=== PATIENT | male | born 1950 | race Two or more races ===

== ENCOUNTER 2025-08-01 10:00 | Inpatient (IN) | payer OTHER ==
[~2025-08-01] VITALS: Ht 182.9 cm; Wt 102.1 kg
[2025-08-01 11:49] LABS: URINE APPEARANCE Clear; URINE BILIRRUBIN Negative (NEGATIVE); URINE BLOOD Negative; URINE COLOR Yellow; URINE GLUCOSE Negative (NEGATIVE); URINE KETONE Negative (NEGATIVE); URINE LEUKOCYTE Negative; URINE NITRATE Negative; URINE PROTEIN Negative (NEGATIVE); URINE UROBILINOGEN 0.2 E.U./dl
[2025-08-01 11:51] LABS: URINE BACTERIA 6.8 uL (0.0-1933); URINE RBC 4.8 uL (0.0-20.8)
[2025-08-01] MEDS ORDERED: ELIQUIS5 MG PO (11:51)
[2025-08-01] MEDS ORDERED: IRBESARTAN75 MG PO (11:51)
[2025-08-01] MEDS ORDERED: LEVO-T50 MCG PO (11:51)
[2025-08-01 11:52] VITALS: BP 160/91
[2025-08-01 11:52] LABS: BASO % 0.6 % (0.1-1.2); EOS # 0.13 (0.04-0.54); EOS % 2.7 % (0.7-7.0); LYMPH # 1.57 (1.18-3.74); LYMPH % 32.8 % (19.3-53.1); MEAN PLATELET VOLUME 9.50 fl (9.4-12.4); MONO # 0.43 (0.24-0.82); MONO % 9.0 % (4.7-12.5); NEUT # 2.61 (1.56-6.13); NEUT % 54.7 % (34.0-71.1); RED CELL DISTRIBUTION WIDTH 12.5 % (11.6-14.4)
[2025-08-01] MEDS ORDERED: INDERAL LA120 MG PO (11:52)
[2025-08-01] MEDS ORDERED: LIPITOR20 MG PO (11:52)
[2025-08-01 11:55] LABS: URINE CAST 0.00 uL (0.0-1.40); URINE EPITHELIAL CELLS 0.1 uL (0.0-38.8); URINE WBC 1.2 uL (0.0-23.2)
[2025-08-01 12:03] LABS: INR 1.05
[2025-08-01 12:27] LABS: ALT/SGPT 25.0 U/L (12-78); AST/SGOT 20.0 U/L (15-37); BILIRUBIN TOTAL 0.82 mg/dL (0.3-1.2); BUN CREA RATIO 17.0 (7.0-25.0); CREATININE SERUM 1.01 mg/dL (0.70-1.30); GFR 72.41; GLOBULINA 3.2 G/DL (2.4-3.5); GLUCOSE FASTING 108.0 mg/dL (65-100); OSMOLALITY SERUM 287.0 MOSM/KG (275-295)
[2025-08-08] MEDS ORDERED: CEFAZOLIN SODIUM 1,000 MG VIAL ONE ×2 (12:09→17:25)
[2025-08-08] MEDS ORDERED: TRANEXAMIC ACID 100MG/1ML (1000MG) AMPUL ONE (12:10)
[2025-08-08] MEDS ORDERED: KETOROLAC TROMETHAMINE 60 MG VIAL IM ONE (13:07)
[2025-08-08] MEDS ORDERED: MORPHINE SULFATE 4 MG/ML CARTRIDGE IV ONE (13:30)
[2025-08-08] MEDS ORDERED: SUGAMMADEX SODIUM 200 MG/2 ML VIAL IV ONE (15:57)
[2025-08-08] MEDS ORDERED: ONDANSETRON HCL 2 MG/ML VIAL IV PRN (16:45)
[2025-08-08] MEDS ORDERED: SODIUM CHLORIDE 0.45 % 1,000 ML IV SCH (16:45)
[2025-08-08] MEDS ORDERED: MORPHINE SULFATE 4 MG/ML VIAL IV PRN (16:45)
[2025-08-08] MEDS ORDERED: MORPHINE SULFATE 2 MG/ML CARTRIDGE IV ONE (16:45)
[2025-08-08] MEDS ORDERED: GENTAMICIN SULFATE 40 MG/ML VIAL IV SCH (17:00)
[2025-08-08] MEDS ORDERED: PROPRANOLOL HCL 120 MG PO SCH (17:00)
[2025-08-08] MEDS ORDERED: GENTAMICIN SULFATE 40 MG/ML VIAL ONE (17:25)
[2025-08-08] MEDS ORDERED: CEFAZOLIN SODIUM 1,000 MG VIAL IV SCH (18:00)
[2025-08-08 19:36] VITALS: BP 150/67; O2SAT 97
[2025-08-09 00:30] VITALS: BP 130/74; O2SAT 97
[2025-08-09] MEDS ORDERED: APIXABAN 2.5 MG TABLET PO SCH (05:00)
[2025-08-09] MEDS ORDERED: LEVOTHYROXINE SODIUM 50 MCG TABLET PO SCH (06:00)
[2025-08-09 06:51] LABS: BASO % 0.3 % (0.1-1.2); EOS # 0.03 (0.04-0.54); EOS % 0.4 % (0.7-7.0); LYMPH # 0.79 (1.18-3.74); LYMPH % 11.0 % (19.3-53.1); MEAN PLATELET VOLUME 9.50 fl (9.4-12.4); MONO # 0.57 (0.24-0.82); MONO % 7.9 % (4.7-12.5); NEUT # 5.78 (1.56-6.13); NEUT % 80.1 % (34.0-71.1); RED CELL DISTRIBUTION WIDTH 12.7 % (11.6-14.4)
[2025-08-09 08:29] VITALS: BP 119/69; O2SAT 93
[2025-08-09] MEDS ORDERED: ACETAMINOPHEN WITH CODEINE 1 UDTAB TABLET PO PRN (08:30)
[2025-08-09] MEDS ORDERED: ATORVASTATIN CALCIUM 20 MG TABLET PO SCH (09:00)
[2025-08-09] MEDS ORDERED: IRBESARTAN 75 MG TABLET PO SCH (09:00)
[2025-08-09] MEDS ORDERED: CELECOXIB 200 MG CAPSULE PO SCH (09:00)
[2025-08-09] MEDS ORDERED: SENNA/DOCUSATE SODIUM 1 TAB TABLET PO SCH (09:00)
[2025-08-09] MEDS ORDERED: IRON FUM,PS/FOLIC/BCOMP,C NO.9 1 CAP CAPSULE PO SCH (09:00)
[2025-08-09] MEDS ORDERED: BACITRACIN 28.35 GM OINT.TUBE TOP SCH (09:00)
[2025-08-09 13:38] LABS: COVID-19 AG NEGATIVE (NEGATIVE)
[2025-08-09 15:56] VITALS: BP 136/68; O2SAT 97
[2025-08-09] MEDS ORDERED: SULFAMETHOXAZOLE/TRIMETHOPRIM DS 1 TAB PO SCH (21:00)
[2025-08-10] VITALS: BP 130/63; O2SAT 95
[2025-08-10 06:27] LABS: BASO % 0.3 % (0.1-1.2); EOS # 0.06 (0.04-0.54); EOS % 0.8 % (0.7-7.0); LYMPH # 0.93 (1.18-3.74); LYMPH % 11.6 % (19.3-53.1); MEAN PLATELET VOLUME 9.90 fl (9.4-12.4); MONO # 0.89 (0.24-0.82); MONO % 11.1 % (4.7-12.5); NEUT # 6.07 (1.56-6.13); NEUT % 75.9 % (34.0-71.1); RED CELL DISTRIBUTION WIDTH 12.4 % (11.6-14.4)
[2025-08-10] MEDS ORDERED: Septra Ds Tablet PO (06:35)
[2025-08-10] MEDS ORDERED: ACETAMINOPHEN-1 EAC2 PO (06:36)
[2025-08-10] MEDS ORDERED: ELIQUIS2.5 MG PO (06:36)
[2025-08-10] MEDS ORDERED: INTEGRA PLUS C1 EACH PO (06:36)
[2025-08-10 08:00] VITALS: BP 100/60; O2SAT 96
[2025-08-10 15:46] VITALS: BP 93/51; O2SAT 99
== END 2025-08-10 17:08 | DRG 470 ==
LOC: SURG 08-08 10:00 → O/R 08-08 11:00 → SURG 08-08 11:00
PROVIDERS: ADMIT Orthopaedic Surgery Sports Medicine; ATTEND Orthopaedic Surgery Sports Medicine
PROC: 0SRB02Z Replacement of Left Hip Joint with Metal on Polyethylene Synthetic Substitute, Open Approach (ICD-10-PCS; principal; 2025-08-08 11:30)
DX: M16.12 Unilateral primary osteoarthritis, left hip (principal); Z96.642 Presence of left artificial hip joint